=== PATIENT | female | born 1960 | race Caucasian/White ===

== ENCOUNTER 2021-05-26 09:09 | Outpatient (CLI) | payer BC, SELFPAY ==
--- NOTE | ~2021-05-26 | MM_ITS ---
EXAMINATION: MM screening [facility] BI w romaine HISTORY: Screening baseline mammogram TECHNIQUE: Craniocaudal and mediolateral oblique 3-D tomosynthesis images were obtained and synthetic 2-D images were generated. CAD analysis was submitted and interpreted. COMPARISON: No prior mammogram is available for comparison at this institution. BREAST PARENCHYMAL COMPOSITION: There are scattered areas of fibroglandular density. FINDINGS: Approximately 5 mm opacity in the posterior upper outer left breast, possibly an intramamma ry lymph node. Diagnostic left mammogram and left breast ultrasound examination are recommended. No suspicious mass or architectural distortion, malignant calcification, skin thickening or retractio n is noted otherwise. IMPRESSION: 1. Asymmetric 5 mm mass, posterior upper outer left breast 2. Diagnostic left mammogram and targeted left breast ultrasound examination are recommended BI-RADS Category 0: Incomplete: Needs additional imaging evaluation. Reviewed, dictated and finalized at location A. IMPRESSION: 1. Asymmetric 5 mm mass, posterior upper outer left breast 2. Diagnostic left mammogram and targeted left breast ultrasound examination ar marco recommended BI-RADS Category 0: Incomplete: Needs additional imaging evaluation.
== END 2021-05-26 09:10 | disposition home or self-care (01) ==
LOC: CHSIMG 09:12
PROVIDERS: PCP Family Medicine; Visit Provider Family Medicine
DX: Z12.31 Encounter for screening mammogram for malignant neoplasm of breast (principal)
CPT/HCPCS: 77063; 77067

== ENCOUNTER 2021-06-18 09:04 | Outpatient (CLI) | payer BC, SELFPAY ==
--- NOTE | ~2021-06-18 | MMUS_ITS ---
EXAMINATION: MM diagnostic jaqui LT w romaine, US breast LT limited HISTORY: Follow-up left breast mass TECHNIQUE: Additional 3-D tomosynthesis images of the left breast were performed and synthetic 2-D im ages were generated. CAD analysis was submitted and interpreted. High resolution Limited left breast ultrasound was performed. COMPARISON: 05/26/2021 BREAST PARENCHYMAL COMPOSITION: Breast composed of scattered areas of fibroglandular density. FINDINGS: MAMMOGRAPHIC FINDINGS: There is a circumscribed mass in the upper outer quadrant of the left breast with central lucency, co mpatible with benign mass. No suspicious calcifications or architectural distortion. ULTRASOUND: Limited left breast ultrasound: At 2:00, 8 cm from the nipple, there is a 5 mm intramammary lymph nod e corresponding to the mammographic finding. IMPRESSION: 1. No evidence for malignancy in the left breast. Benign intramammary lymph node. 2. Routine yearly screening mammogram and regular clinical breast examination are recommended. BI-RADS Category 2: Benign finding(s). Reviewed, dictated and finalized at location A. IMPRESSION: 1. No evidence for malignancy in the left breast. Benign intramammary lymph nod e. 2. Routine yearly screening mammogram and regular clinical breast examination a re recommended. BI-RADS Category 2: Benign finding(s).
== END 2021-06-18 09:05 | disposition home or self-care (01) ==
LOC: CHSIMG 09:05
PROVIDERS: PCP Family Medicine; Visit Provider Family Medicine
DX: R92.8 Other abnormal and inconclusive findings on diagnostic imaging of breast (principal)
CPT/HCPCS: 76642; 77061; 77065; G0279

== ENCOUNTER 2021-06-24 00:50 | Day surgery (SDC) | payer BC, SELFPAY ==
[2021-06-14 13:10] VITALS: BMI 28.0
[2021-06-24 06:23] VITALS: BP 133/73; PULSE 70; RESP 16; TEMP 36.1; O2SAT 98
[2021-06-24] MEDS: LACTATED RINGERS 1,000 ML 150 ML IV CONT (06:36)
--- NOTE | 2021-06-24 07:31 | P.PNAN_ITS ---
Anes - Initial Pre Proc Eval Procedure: Operation Date: 06/24/21 07:30 Proposed Procedures p Screening Colonoscopy - Oskar Chavez DO Date/Time: 06/24/21 07:31 Surgeon: Oskar Chavez DO Pre Op Diagnosis: neoplasm screening Patient Data Age: 60 Gender: F Height: 1.68 m Weight: 78.3 kg Last Vital Signs Temp 97.0 F L 06/24/21 06:23 Pulse 70 06/24/21 06:23 Resp 16 06/24/21 06:23 BP 133/73 06/24/21 06:23 Pulse Ox 98 06/24/21 06:23 Allergies Allergy/AdvReac Type Severity Reaction Status Date / Time epinephrine AdvReac Intermediate body Verified 06/24/21 06:21 shaking Home Medications Medication Instructions Recorded Confirmed Type No Home Medications 05/21/21 06/24/21 History Patient hx anesthesia problems: none Family hx anesthesia problems: none Results Review: All pre-operative results and documents have been reviewed as part of the pre-operative evaluation. [facility] Past Medical History Medical History Frieda's thyroiditis Surgical History Surgical History History of thyroidectomy Rigth side of thyroid. 2011 Family History Family History Mother , Age 99 Cancer Father , Age 88 Cerebrovascular accident Social History Social History Smoking status: Never smoker Alcohol intake: current Living arrangements: with family Additional living arrangements comments: . Spiritual care concerns: No Anes - Eval Final PreProcedure Day of Procedure 06/24/21 07:31 Patient weight: overweight Heart: regular rate and rhythm Lungs: clear to auscultation Airway: Mallampati scale class II Neurological: alert and oriented Last oral intake: >/= 8 hours ASA classification: II Emergent: no Anesthetic plan: proceed Anesthesia type and monitoring: general GIVS and standard monitoring Results Review: All pre-operative results and documents have been reviewed as part of the pre-operative evaluation. Informed Consent: The patient's anesthetic plan and its attendant risks and benefits were discussed with the patient/family/POA. Questions were solicited and answers provided to the satisfaction of the patient/family/POA.
--- NOTE | 2021-06-24 07:33 | PM.IMHP ---
H&P: HPI History of Present Illness Date/Time: 06/24/21 07:33 Chief Complaint: Screening for colorectal cancer, history of colon polyps Narrative: this is a 60-year-old woman who presents for colonoscopy. Her last colonoscopy was 10-15 years ago. She states that 2 small polyps removed at that time. She denies any hematochezia or melena. She denies any family history of colon cancer. Review of Systems Review of Systems: All systems reviewed & are unremarkable except as noted in HPI and below Constitutional: Constitutional: Denies chills, Denies fever(s), Denies headache(s) and Denies weight loss Eyes: Eyes: Denies change in vision ENT: Denies dizziness, Denies headache(s), Denies neck mass and Denies throat swelling Cardiovascular: Cardiovascular: Denies chest pain, Denies lightheadedness and Denies dyspnea Respiratory: Respiratory: Denies cough, Denies dyspnea and Denies wheezing Gastrointestinal: Gastrointestinal: Denies abdominal pain, Denies change in bowel habits, Denies nausea and Denies vomiting Genitourinary: Genitourinary: Denies hematuria and Denies dysuria Musculoskeletal: Musculoskeletal: Reports as per HPI Integumentary/Breasts: Skin/Breast: Reports as per HPI Neurologic: Denies dizziness and Denies headache(s) Allergic/Immunologic: Allergic/Immunologic: Denies throat swelling and Denies wheezing PMF Past Medical History Medical History Frieda's thyroiditis Surgical History Surgical History History of thyroidectomy Rigth side of thyroid. 2011 Family History Family History Mother , Age 99 Cancer Father , Age 88 Cerebrovascular accident Social History Social History Smoking status: Never smoker Alcohol intake: current Living arrangements: with family Additional living arrangements comments: . Spiritual care concerns: No Meds Home Medications and Allergies Home Medications Medication Instructions Recorded Confirmed Type No Home Medications 05/21/21 06/24/21 History Allergies Allergy/AdvReac Type Severity Reaction Status Date / Time epinephrine AdvReac Intermediate body Verified 06/24/21 06:21 shaking Vital Signs Vital Signs - 24 hr 06/24/21 06:23 Temperature 36.1 C L Pulse Rate 70 Respiratory Rate 16 Blood Pressure 133/73 Pulse Oximetry 98 Exam Const: General: no acute distress and alert Orientation/consciousness: patient oriented x3 HENMT: Head: normocephalic and atraumatic Ears: hearing grossly normal bilaterally General nose exam: Normal nares present Mouth: Yes Normal oral and palatal mucosa present Eyes: Periorbital: periorbital findings normal Sclera: sclerae normal EOM: EOMs intact bilaterally Neck: Neck: normal visual inspection, no lymphadenopathy and trachea midline Chest: Chest palpation & inspection: normal inspection of the chest Resp: Effort & Inspection: normal respiratory effort Auscultation: clear to auscultation bilaterally Cardio: Jugular venous distension: no JVD Rate: regular rate Rhythm: regular rhythm Heart sounds: S1 normal heart sound present and S2 normal heart sound present Peripheral pulses: Peripheral pulses 2+ throughout GI: Inspection: normal to inspection GI Palp: Yes Soft to palpation, No Tenderness to palpation present (GI), No Guarding due to palpation present (GI) and No Rebound tenderness present Percussion: Yes normal to percussion Auscultation: normal bowel sounds : General: Yes no CVA tenderness Back/Spine/Pelvis: Back: no CVA tenderness Neuro: General: patient oriented x3, no focal motor deficits and CN's II-XI intact bilaterally Cognition (Neuro): normal cognition Speech: normal speech Motor exam (neuro): 5/5 motor strength p
[2021-06-24 08:06] VITALS: BP 98/60; PULSE 64; RESP 22; O2SAT 98
[2021-06-24 08:16] VITALS: BP 110/69; PULSE 61; RESP 16; O2SAT 97
[2021-06-24 08:26] VITALS: BP 131/77; PULSE 60; RESP 20; O2SAT 100
== END 2021-06-24 08:40 | disposition home or self-care (01) ==
PROVIDERS: PCP Family Medicine; Visit Provider Surgery
PROC: 0DJD8ZZ Inspection of Lower Intestinal Tract, Via Natural or Artificial Opening Endoscopic (ICD-10-PCS; CPT 45378; principal; 2021-06-24 07:30)
DX: Z12.11 Encounter for screening for malignant neoplasm of colon (principal); D12.3 Benign neoplasm of transverse colon; K62.1 Rectal polyp; K64.8 Other hemorrhoids; E06.3 Autoimmune thyroiditis
CPT/HCPCS: 45385; 88305; J2704; J7120

== ENCOUNTER 2021-07-02 13:15 | Outpatient (CLI) | payer BC, SELFPAY ==
--- NOTE | ~2021-07-02 | DEXA_ITS ---
Bone Density Report Name: Tyler Luo Age: 60 Sex: Female Ethnicity: White Date of : 1960 Indication: postmenopausal; screening for osteoporosis; parental hip fracture; height loss; Referring Provider: Fransico, Elizabeth Laureano Study: Bone densitometry was performed. Exam Date: July 02, 2021 Accession number: [id number] Bone Density: Region BMD T-score Z-score Classification AP Spine(L1-L4) 0.938 -1.0 0.6 Normal Femoral Neck (Left) 0.652 -1.8 -0.4 Osteopenia Total Hip (Left) 0.767 -1.4 -0.4 Osteopenia Femoral Neck (Right) 0.661 -1.7 -0.3 Osteopenia Total Hip (Right) 0.751 -1.6 -0.5 Osteopenia Femoral Neck Mean 0.657 -1.7 -0.4 Osteopenia Total Hip Mean 0.759 -1.5 -0.4 Osteopenia World Health Organization criteria for BMD impression classify patients as: Normal (T-score at or above -1.0), Osteopenia (T-score between -1.0 and -2.5), or Osteoporosis (T-score at or below -2.5). 10-year Fracture Risk(1): Major Osteoporotic Fracture 17% Hip Fracture 1.0% Reported Risk Factors: [place] (), Neck BMD=0.652, BMI=30.0, parental fracture (1) FRAX(R) Version 3.08. Fracture probability calculated for an untreated patient. Fracture probability may be lower if the patient has received treatment. Clinical Information Provided by Patient: Parent has had a hip fracture Patient maximum height was 65.5 Menopause Age: 55 No regular weight bearing exercise Drinks caffeinated beverages Onset of menses at age 11 Number of children 0 Missed period for more than 6 months in a row Impression: The patient has low bone mass, based on the Left Femoral Neck T-score. The patient has risk factors, including: parental hip fracture. Discussion: BONE DENSITY IS LOW AT ONE OR MORE SKELETAL SITES. This patient's lowest T-score is low at one or more skeletal sites. It meets the World Health Organization's (WHO) criteria for ?low bone mass? (T-score between -1.0 and -2.5). The patient's 10-year risk of fracture as calculated by FRAX is less than the threshold where pharmacological therapy is recommended by the National Osteoporosis Foundation (NOF). However, all treatment decisions require clinical judgment and consideration of individual patient factors, including patient preferences, comorbidities, previous drug use, risk factors not captured in the FRAX model (e.g., frailty, falls, vitamin D deficiency, increased bone turnover, interval significant decline in bone density) and possible under or overestimation of fracture risk by FRAX. The patient should follow a healthful lifestyle (good nutrition with adequate calcium and vitamin D, and appropriate weight-bearing exercise). Follow-Up: Consider repeating this study in 2 to 3 years to reassess this patient's status, or sooner if
== END 2021-07-02 13:16 | disposition home or self-care (01) ==
LOC: CHSIMG 13:16
PROVIDERS: PCP Family Medicine; Visit Provider Nurse Practitioner Obstetrics & Gynecology
DX: M85.80 Other specified disorders of bone density and structure, unspecified site (principal)
CPT/HCPCS: 77080

== ENCOUNTER 2024-06-24 10:43 | Outpatient (CLI) | payer MEDICARE, OTHER, SELFPAY ==
--- NOTE | 2024-06-24 10:49 | ECG_ITS ---
Test Date: 2024-06-24 11:00:04 Measurements Intervals [place] Rate: 75 P: 81 GA: 168 QRS: 85 QRSD: 100 T: 81 QT: 378 QTc: 423 Interpretive Statements SINUS RHYTHM WITH FREQUENT VENTRICULAR PREMATURE COMPLEXES ABNORMAL RHYTHM ECG No previous ECG available for comparison Electronically Signed On 06-25-2024 07:35:03 CDT by Jorge Shaffer M.D.
== END 2024-06-24 10:44 | disposition home or self-care (01) ==
LOC: CHSCARD 10:45
PROVIDERS: PCP Family Medicine; Visit Provider Nurse Practitioner Family
DX: I49.9 Cardiac arrhythmia, unspecified (principal); E06.3 Autoimmune thyroiditis; R94.31 Abnormal electrocardiogram [ECG] [EKG]
CPT/HCPCS: 93005